=== PATIENT | male | born 1990 | race Caucasian/White ===

== ENCOUNTER 2024-06-10 22:01 | Emergency (ER) | payer SELFPAY ==
[2024-06-10] VITALS (21 sets, daily range): BP systolic 122–158; BP diastolic 78–102; PULSE 65–85; RESP 11–20; TEMP 36.6; O2SAT 97–100; BMI 16.7
--- NOTE | 2024-06-10 22:14 | CTR_ITS ---
PROCEDURE INFORMATION: Exam: CT Head Without Contrast Exam date and time: 06/10/2024 10:37 PM Age: 33 years old Clinical indication: General weakness. TECHNIQUE: Imaging protocol: Computed tomography of the head without contrast. Total images: 284 submitted. Radiation optimization: All CT scans at this facility use at least one of these dose optimization techniques: automated exposure control; mA and/or kV adjustment per patient size (includes targeted exams where dose is matched to clinical indication); or iterative reconstruction. COMPARISON: No relevant prior studies available. RADIATION DOSE METRICS: Total DLP (mGy-cm): 982.28 FINDINGS: Brain: No midline shift. Cisterns are noneffaced. No abnormal low or high attenuation lesions within brain parenchyma. No intracranial hemorrhage. No definite evidence of acute infarcts. However, diffusion MRI is more sensitive. No extra-axial fluid collections. Cerebral ventricles: Ventricles are normal in size. Paranasal sinuses: Visualized sinuses are clear. Mastoid air cells: Visualized mastoid air cells are well aerated. Orbital cavities: Visualized orbits are normal. Bones: Unremarkable. No acute fractures. Soft tissues: Grossly unremarkable. CT/CT head wo con* [id number] IMPRESSION: Normal head CT without IV contrast.
[2024-06-10] MEDS: sodium chloride 0.9% 1,000 ML 999 ML IV (22:30)
[2024-06-10] MEDS: ondansetron 2 mg/ML SDV 2 mL 4 MG IVP (22:31)
[2024-06-10 22:36] LABS: Basophils # 0.1 10^3/uL (0.0-0.1); Basophils % 0.8 %; Eosinophils # 0.2 10^3/uL (0.0-0.8); Eosinophils % 1.8 %; Hematocrit 42.6 % (37-53); Lymphocytes # 3.3 10^3/uL (0.8-4.8); Lymphocytes % 33.9 %; Mean Corpuscular Hemoglobin 30.7 pg (27-33); Mean Corpuscular Volume 90.1 fl (82-101); Mean Platelet Volume 9.7 fL (7.4-10.4); Monocytes # 0.7 10^3/uL (0.2-0.9); Monocytes % 7.5 %; Neutrophils # 5.41 10^3/uL (1.8-7.7); Neutrophils % 55.8 %; Nucleated Red Blood Cells % 0 %; Platelet Count 226 10^3/cmm (157-399); Red Blood Count 4.73 10^6/uL (3.85-5.65); Red Cell Distribution Width 12.5 % (12.1-15.1)
--- NOTE | 2024-06-10 22:43 | ECG_ITS ---
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 Measurements Intervals [place] Rate: 83 P: 70 IA: 120 QRS: 88 QRSD: 109 T: 89 QT: 380 QTc: 448 Interpretive Statements SINUS RHYTHM INCOMPLETE RIGHT BUNDLE BRANCH BLOCK Nonspecific T wave changes No previous ECG available for comparison Electronically Signed On 06-11-2024 14:02:53 CIVIL STRUCTURAL DESIGNER by Mallika Ramirez M.D. [email or web address]
[2024-06-10 22:46] LABS: INR 1.09 (0.8-1.2)
[2024-06-10 22:47] LABS: Partial Thromboplastin Time 29.8 SECONDS (23.9-36.7)
--- NOTE | 2024-06-10 22:56 | ED_ITS ---
HPI - Weakness 2 General: Chief complaint: Weakness Stated complaint: lighthead left side weakness left side of face n/v Time Seen by Provider: 06/10/24 22:14 History of Present Illness: 33-year-old healthy male. He presents w [facility] what he says is left-sided weakness, for the past 3 days or so. He says his left upper and lower extremity are significantly weaker than the right side. He is tested this with muscle testing such as lifting a small amount of weight, etc. He says that the left side gets tired much faster than the right. He has had lightheadedness and nausea as well. He denies headache. No head trauma. No history of this in the past. No speech or language problems. No vision problems. He denies fever or being ill otherwise. Physical Exam 2 Const: COMMON NORMALS: no acute distress GENERAL APPEARANCE: cooperative and anxious; not ill appearing and not frail appearing HENMT: COMMON NORMALS: normocephalic, atraumatic and Normal external nose present HEAD & SCALP: normocephalic and atraumatic FACE & SINUS: normal facial exam and face symmetric NOSE: Normal external nose present Eye: COMMON NORMALS: Equal, round and reactive pupils present and EOMs intact bilaterally PUPIL: Yes Equal, round and reactive pupils present Neck/C-Spine: GENERAL: Yes trachea midline Chest: CHEST: Yes Symmetrical chest wall rise Resp: COMMON NORMALS: normal respiratory effort, No retractions, No use of accessory muscles and clear to auscultation bilaterally AUSCULTATION: clear to auscultation bilaterally Cardio: COMMON NORMALS: regular rate and regular rhythm RATE: regular rate RHYTHM: regular rhythm GI: COMMON NORMALS: Normal to inspection, nondistended, normoactive bowel sounds present Extremity: COMMON NORMALS: no pedal edema Neuro: DORITA COMA SCALE: document GCS findings Dorita coma scale eye opening: Spontaneous Dorita coma scale verbal response: Orientated Dorita coma scale motor response: Obey commands Dorita coma scale total score: 15 S ENSORY EXAM: Yes extremities (intact) Psych: COMMON NORMALS: speech normal SPEECH: Yes normal speech Skin: COMMON NORMALS: no rashes or lesions noted GENERAL SKIN EXAM: no rashes or lesions noted Course 2 Vital Signs: Vital signs: Vital Signs Temperature 97.8 F 06/10/24 22:04 Pulse Rate 73 06/11/24 00:22 Respiratory Rate 18 06/11/24 00:22 Blood Pressure 117/87 06/11/24 00:22 Pulse Oximetry 97 06/11/24 00:22 MDM - Weakness Medical Decision Making Patient was initially hypertensive. Blood pressure is now 122/82. Heart rate is 80. EKG shows a sinus rhythm with an incomplete right bundle branch block, and no other significant abnormalities. CBC is normal. He is afebrile. Head CT is negative. His potassium is 3.1. Likely a cause of his weakness. It is repleted in the emergency department. He will be allowed discharge. Close outpatient follow-up for repeat potassium on Wednesday. Return for problems. Lab Data 06/10/24 22:30 06/10/24 22:[address] 06/10/24 22: IMPRESSION: Normal head CT without IV contrast. Laboratory Results WBC 9.70 10^3/uL (3.29-11.43) 06/10/24 22: RBC 4.73 10^6/uL (3.85-5.65) 06/10/24 22: Hgb 14.50 g/dL (11.27-16.99) 06/10/24 22:30 Hct 42.6 % (37-53) 06/10/24 22: MCV 90.1 fl (82-101) 06/10/24 22: MCH 30.7 pg (27-33) 06/10/24 22: MCHC 34.0 g/dL (30-55) 06/10/24 22: RDW 12.5 % (12.1-15.1) 06/10/24: Plt Count 226 10^3/cmm (157-399) 06/10/24 22:30 MPV 9.7 fL (7.4-10.4) 06/10/24 22: Neut % (Auto) 55.8 % 06/10/24: Lymph % (Auto) 33.9 % 06/10/24 22:30 [place] % (Auto) 7.5 % 06/10/24: Eos % (Auto) 1.8 % 06/10/24: Baso % (Auto) 0.8 % 06/10/24: Neut # (Auto) 5.41 10^3/uL (1.8-7.7) 06/10/24 22:30 Lymph # (Auto) 3.3 10^3/uL (0.8-4.8) 06/10/24 22:30 [place] # (Auto) 0.7 10^3/uL (0.2-0.9) 06/10/24 22:30 Eos # (Auto) 0.2 10^3/uL (0.0-0.8) 06/10/24 22:30 Baso # (Auto) 0.1 10^3/uL (0.0-0.1) 06/10/24 22:30 Nucleated RBC % (auto) 0 % 06/10/24 22: Nucleated RBCs # 0.0 /100WBC 06/10/24 22:30 PT 14.50 SECONDS (12.1-14.9) 06/10/24 22:30 INR 1.09 (0.8-1.2) 06/10/24 22:30 APTT 29.8 SECONDS (23.9-36.7) 06/10/24 22:30 Sodium 142 mmol/L (136-145) 06/10/24 22:30 Potassium 3.1 mmol/L (3.5-5.1) L 06/10/24 22:30 Chloride 105 mmol/L (98-107) 06/10/24 22:30 Carbon Dioxide 25 mmol/L (22-29) 06/10/24 22:30 Anion Gap 15.1 (5-19) 06/10/24 22:30 BUN 8 mg/dL (6-20) 06/10/24 22:30 Creatinine 0.9 mg/dL (0.7-1.2) 06/10/24 22:30 GFR Calculation 97.8 mL/min (90-130) 06/10/24 22:30 Glucose 102 mg/dL (65-115) 06/10/24 22:30 Calculated Osmolality 293 mOsm/kg (285-295) 06/10/24 22:30 Calcium 8.7 mg/dL (8.5-10.5) 06/10/24 22:30 Magnesium 1.7 mg/dL (1.7-2.3) 06/10/24 22:30 Total Bilirubin 1.6 mg/dL (0.15-1.2) H 06/10/24 22:30 AST 19 U/L (0-40) 06/10/24 22:30 ALT 12 U/L (0-41) 06/10/24 22:30 Alkaline Phosphatase 47 U/L (40-130) 06/10/24 22:30 C-Reactive Protein 3.0 mg/L (0.0-4.9) 06/10/24 22:30 Total Protein 6.9 g/dL (6.6-8.7) 06/10/24 22:30 Albumin 4.7 g/dL (3.5-5.2) 06/10/24 22:30 Globulin 2.2 g/dL (1.3-4.6) 06/10/24 22:30 TSH 2.57 uIU/mL (0.27-4.20) 06/10/24 22:30 Amorphous Sediment Not Reportable 06/11/24 00:20 Ethyl Alcohol < 10 mg/dL (0-10) 06/10/24 22:30 All radiology interpretation(s) finalized by discharge Discharge Plan Discharge Patient Disposition: Home Clinical Impression: Acute hypokalemia Condition: Stable Prescriptions: New ondansetron 4 mg tablet,disintegrating 4 mg PO Q6H PRN (Reason: nausea and vomiting) Qty: 14 0RF Discharge Orders: Discharge ED (Routine); Ordered 06/11/24 Ordered By: Terrance Connelly Patient Instructions: Hypokalemia (ED), Opioid Safety, Pain Management Activity Restrictions/Additional Instructions: You may take the prescribed medication as needed for nausea. You should have your potassium rechecked on Wednesday. Call your doctor Wednesday for a follow-up appointment regarding this. Return for any worsening symptoms in the meantime. Coding Level of Care Code ED Bistro Attendant for Chg Fwd Related Data Previous Rx's Medication Instructions Recorded ondansetron 4 mg disintegrating 4 mg PO Q6H PRN nausea and 06/11/24 tablet vomiting #14 tabs Allergies Allergy/AdvReac Type Severity Reaction Status Date / Time bee venom protein (honey bee) Allergy Gaurang Verified 06/10/24 22:08 Lip/Tongue/Throat NIH stroke score NIHSS Level Of Consciousness - 1a: 0 Level Of Consciousness Questions - 1b: Both Correct Level Of Consciousness Commands - 1c: Both Correct Best Gaze - 2: Normal Visual Manrique - 3: No Visual Loss Facial Palsy - 4: Normal Motor Arm Right - 5: No Drift Motor Arm Left - 5: No Drift Motor Leg Right - 6: No Drift Motor Leg Left - 6: No Drift Limb Ataxia - 7: Absent Sensory - 8: Normal Best Language - 9: No Aphasia Dysarthia - 10: Normal Extinction And Inattention - 11: 0 Score Total Score: 0
[2024-06-10 23:02] LABS: Alanine Aminotransferase 12 U/L (0-41); Albumin Level 4.7 g/dL (3.5-5.2); Alkaline Phosphatase 47 U/L (40-130); Anion Gap 15.1 (5-19); Aspartate Amino Transferase 19 U/L (0-40); Blood Urea Nitrogen 8 mg/dL (6-20); Calcium 8.7 mg/dL (8.5-10.5); Carbon Dioxide 25 mmol/L (22-29); Chloride 105 mmol/L (98-107); Creatinine Clr Calc Pharmacy 83.1583; Globulin 2.2 g/dL (1.3-4.6); Glomerular Filtration Rate 97.8 mL/min (90-130); Glucose 102 mg/dL (65-115); Magnesium 1.7 mg/dL (1.7-2.3); Osmolality Calculated 293 mOsm/kg (285-295); Potassium 3.1 mmol/L (3.5-5.1); Sodium 142 mmol/L (136-145); Thyroid Stimulating Hormone 2.57 uIU/mL (0.27-4.20); Total Bilirubin 1.6 mg/dL (0.15-1.2); Total Protein 6.9 g/dL (6.6-8.7)
[2024-06-10 23:03] LABS: Alcohol Level < 10 mg/dL (0-10)
[2024-06-11] VITALS: BP 122/78; PULSE 72; RESP 10; O2SAT 99
[2024-06-11] MEDS: potassium chloride oral liq 20 mEq/15 mL UDC 40 MEQ PO (00:01)
[2024-06-11 00:05] VITALS: BP 117/87; PULSE 78; RESP 16; O2SAT 99
[2024-06-11 00:10] VITALS: BP 117/87; PULSE 81; RESP 21; O2SAT 99
[2024-06-11 00:22] VITALS: BP 117/87; PULSE 73; RESP 18; O2SAT 97
[2024-06-11 00:30] LABS: Bilirubin Urine Negative (Negative); Blood Urine Negative (Negative); Glucose Urine UA Negative (Normal); Ketones Urine Trace (Negative); Leukocyte Esterase Urine Negative (Negative); Nitrate Urine Negative (Negative); Protein Urine Negative (Negative); Specific Gravity, Urine 1.008 (1.005-1.030); Urine Appearance Clear (CLEAR); Urine Color Yellow (Yellow)
[2024-06-11 00:35] LABS: Add Urine Microscopic? YES; Bacteria Urine None Seen /hpf; Hyaline Casts Urine 0-4 /lpf; RBC Urine 0-2 /hpf (0-2); Squamous Epithelial Cell Urine 0-5 /hpf (0-5); WBC Urine 0-5 /hpf (0-5)
[2024-06-11 00:39] LABS: Amphetamines Screen Urine Negative (Negative); Barbiturates Screen Urine Negative (Negative); Benzodiazepines Screen Urine Negative (Negative); Cocaine Screen Urine Negative (Negative); Opiate Screen Urine Negative (Negative); PCP Screen Urine Negative (Negative); THC Screen Urine Positive (Negative)
== END 2024-06-11 00:23 | disposition home or self-care (01) ==
PROVIDERS: Emergency Provider Emergency Medicine
DX: E87.6 Hypokalemia (principal)
CPT/HCPCS: 70450; 80053; 80306; 80307; 81001; 83735; 84443; 85025; 85610; 85730; 86140; 93005; 96361; 96374; 99285; J2405; J7030